=== PATIENT | female | born 1990 | race Hispanic/Latino ===

== ENCOUNTER 2021-03-03 07:23 | Emergency (ER) | payer OTHER ==
[~2021-03-03] VITALS: Ht 144.8 cm; Wt 59.0 kg
[~2021-03-03 07:23] MED LIST: PRENATA CHEWAB1 EACH PO
== END 2021-03-03 11:09 | disposition home or self-care (01) ==
LOC: ED 07:23
DX: K52.9 Noninfective gastroenteritis and colitis, unspecified (principal); N83.201 Unspecified ovarian cyst, right side; K42.9 Umbilical hernia without obstruction or gangrene
CPT/HCPCS: 74177; 80053; 81001; 83690; 84703; 85025; 99284-25; J2405; J7030; Q9967